=== PATIENT | male | born 1960 | race Caucasian/White ===

== ENCOUNTER 2019-01-01 11:54 | Emergency (ER) | payer SELFPAY ==
[~2019-01-01] VITALS: Ht 180.3 cm; Wt 110.0 kg
[2019-01-01 14:38] LABS: HEMATOCRIT 45.4 % (39.0-50.0); HEMOGLOBIN 15.3 g/dl (14.0-18.0); IMMATURE GRANULOCYTES 0.4 % (0.0-5.0); MEAN CELL VOLUME 83.8 fL CALC (80.0-100.0); MEAN CORPUSCULAR HGB 28.2 pG CALC (26.0-32.0); MEAN CORPUSCULAR HGB CONC 33.7 g/L CALC (32.0-36.0); NEUT# 5.34 thou/uL (1.82-7.42); RED BLOOD COUNT 5.42 mill/uL (4.70-6.10); RED CELL DISTRI WIDTH 13.2 % (11.5-15.5)
[2019-01-01 14:58] LABS: ALBUMIN 4.7 g/dL (3.2-5.0); ALKALINE PHOSPHATASE 50 u/l (38-126); ANION GAP 14 (6-22 (CALC)); BILIRUBIN, TOTAL 0.5 mg/dL (0.0-1.4); BUN 16 mg/dL (9-20); BUN/CREATININE RATIO 20 (12-20 (CALC)); CARBON DIOXIDE 25 mmol/l (22-30); CHLORIDE 104 mmol/l (95-108); CREATININE 0.8 mg/dL (0.7-1.3); GFR > 60 ML/MIN (>=60 (CALC)); GFR FOR AFR.AMER. > 60 ML/MIN (>=60 (CALC)); POTASSIUM 4.4 mmol/l (3.5-5.1); SGOT/AST 34 u/l (17-59); SODIUM 140 mmol/l (137-146); TOTAL PROTEIN 7.5 g/dL (6.3-8.2)
[2019-01-01 15:11] LABS: MYOGLOBIN 67 ng/mL (0 - 121)
[2019-01-01] MEDS ORDERED: ANTIVERT PO (15:29)
[2019-01-01] MEDS ORDERED: XANAX0.25 MG PO (15:29)
[2019-01-01 15:41] VITALS: BP 172/95
== END 2019-01-01 15:54 | disposition home or self-care (01) | DRG 149 ==
LOC: ED 11:54
PROVIDERS: Emergency Medicine
DX: R42 Dizziness and giddiness (principal); F41.9 Anxiety disorder, unspecified; F17.210 Nicotine dependence, cigarettes, uncomplicated

== ENCOUNTER 2022-04-29 17:11 | Emergency (ER) | payer SELFPAY ==
[2022-04-29] VITALS (21 sets, daily range): BP systolic 112–212; BP diastolic 64–109
[~2022-04-29] VITALS: Ht 180.3 cm; Wt 93.0 kg
[~2022-04-29 17:11] MED LIST: ANTIVERT PO; XANAX0.25 MG PO
[2022-04-29 17:32] LABS: BASO% 0.7 % (0-3); EOS% 1.2 % (0-8); HEMATOCRIT 47.5 % (39.0-50.0); HEMOGLOBIN 16.3 g/dl (14.0-18.0); IMMATURE GRANULOCYTES 0.1 % (0.0-5.0); LYMPH% 27.4 % (15-41); MEAN CELL VOLUME 79.7 fL CALC (80.0-100.0); MEAN CORPUSCULAR HGB 27.3 pG CALC (26.0-32.0); MEAN CORPUSCULAR HGB CONC 34.3 g/dL CAL (32.0-36.0); MONO% 4.5 % (2-13); NEUT# 5.83 thou/uL (1.82-7.42); NEUT% 66.1 % (42-76); RED BLOOD COUNT 5.96 mill/uL (4.70-6.10); RED CELL DISTRI WIDTH 12.9 % (11.5-15.5)
[2022-04-29 17:49] LABS: ALBUMIN 4.9 g/dL (3.2-5.0); ALKALINE PHOSPHATASE 67 u/l (38-126); ANION GAP 14 (6-22 (CALC)); BILIRUBIN, TOTAL 0.5 mg/dL (0.0-1.4); BUN 13 mg/dL (8-23); BUN/CREATININE RATIO 13 (12-20 (CALC)); CARBON DIOXIDE 21 mmol/l (22-30); CHLORIDE 105 mmol/l (95-108); GFR FOR AFR.AMER. > 60 ML/MIN (>=60 (CALC)); GFR OTHER RACES > 60 ML/MIN (>=60 (CALC)); POTASSIUM 3.7 mmol/l (3.5-5.1); SGOT/AST 32 u/l (19-48); SODIUM 137 mmol/l (137-146); TOTAL PROTEIN 7.7 g/dL (6.3-8.2)
[2022-04-29] MEDS ORDERED: LISINOPRIL10 MG PO (18:02)
[2022-04-29] MEDS ORDERED: NORVASC5 M1 PO (18:02)
== END 2022-04-29 21:36 | disposition home or self-care (01) | DRG 313 ==
LOC: ED 17:11
PROVIDERS: Family Medicine
PROC: 05H933Z Insertion of Infusion Device into Right Brachial Vein, Percutaneous Approach (ICD-10-PCS; principal; 2022-04-29)
DX: R07.9 Chest pain, unspecified (principal); R06.02 Shortness of breath